=== PATIENT | female | born 2000 | race African-American/Black ===

== ENCOUNTER 2023-01-05 08:56 | Emergency (ER) | payer OTHER ==
[~2023-01-05] VITALS: Ht 162.6 cm; Wt 68.2 kg
[2023-01-05] MEDS ORDERED: IBUPROFEN 600 MG TABLET PO ONE (09:15)
[2023-01-05 09:16] VITALS: BP 97/62
== END 2023-01-05 09:54 | disposition home or self-care (01) ==
LOC: EMS 09:00
DX: S76.312A Strain of muscle, fascia and tendon of the posterior muscle group at thigh level, left thigh, initial encounter (principal); X58.XXXA Exposure to other specified factors, initial encounter; Y93.89 Activity, other specified; Y92.89 Other specified places as the place of occurrence of the external cause; Y99.8 Other external cause status
CPT/HCPCS: 99282; Z7502; Z7610